=== PATIENT | male | born 1995 | race Two or more races ===

== ENCOUNTER 2023-03-05 19:53 | Inpatient (IN) | payer MEDICAID ==
[~2023-03-05] VITALS: Ht 170.2 cm; Wt 86.8 kg
[2023-03-05 20:39] LABS: ANION GAP 1 mmol/L (8-16); CALCIUM, TOTAL 8.4 mg/dL (8.8-10.5); CARBON DIOXIDE 24 mmol/L (22-29); CHLORIDE 109 mmol/L (98-107); CREATININE 0.82 mg/dL (0.60-1.30); GLOMERULAR FILTR. RATE CALC > 60 mL/min (>60); GLUCOSE,RANDOM 107 mg/dL (70-110); POTASSIUM 3.5 mmol/L (3.5-5.1); SODIUM SERUM 134 mmol/L (136-145); UREA NITROGEN, BLOOD 8 mg/dL (7-18)
[2023-03-05 20:44] LABS: ALANINE AMINOTRANSFERASE 31 U/L (12-78); ALBUMIN 3.6 g/dL (3.4-5.0); ALKALINE PHOSPHATASE 51 U/L (46-116); ASPARTATE AMINOTRANSFERASE 29 U/L (15-37); BILIRUBIN,TOTAL 0.2 mg/dL (0.1-1.0); TOTAL PROTEIN, SERUM 6.9 g/dL (6.4-8.2)
[2023-03-05 20:45] LABS: ALCOHOL, BLOOD (SERUM) 98 mg/dL (0-10)
[2023-03-05 22:33] LABS: PH,URINE DRUG SCREEN 5.5 (5.0-8.0)
[2023-03-05 22:40] LABS: ALCOHOL, URINE DRUG SCREEN POSITIVE (NEGATIVE); AMPHET/METH SCREEN,URINE NEGATIVE (NEGATIVE); BARBITURATE SCREEN, URINE NEGATIVE (NEGATIVE); BENZODIAZEPINES SCREEN,URINE NEGATIVE (NEGATIVE); CANNABINOID SCREEN,URINE POSITIVE (NEGATIVE); COCAINE SCREEN,URINE NEGATIVE (NEGATIVE); METHADONE SCREEN, URINE NEGATIVE (NEGATIVE); OPIATE SCREEN,URINE NEGATIVE (NEGATIVE); PHENCYCLIDINE SCREEN,URINE NEGATIVE (NEGATIVE)
[2023-03-05 23:25] LABS: BASOPHILS % (AUTO) 0.4 % (0.0-2.0); EOSINOPHILS % (AUTO) 1.9 % (1.0-6.0); HEMATOCRIT 41.6 % (41-53); HEMOGLOBIN 13.2 g/dL (13.5-17.5); LYMPHOCYTES # (AUTO) 1.4 K/uL (1.0-4.8); LYMPHOCYTES % (AUTO) 26.4 % (22.0-44.0); MEAN CORPUSCULAR HGB CONC 31.7 G/dL (31.0-37.0); MEAN CORPUSCULAR VOLUME 95 fL (80-100); MONOCYTES # (AUTO) 0.3 K/uL (0.1-1.0); MONOCYTES % (AUTO) 5.7 % (2.0-9.0); NEUTROPHILS # (AUTO) 3.4 K/uL (1.8-7.7); NEUTROPHILS % (AUTO) 65.6 % (40.0-70.0); PLATELET COUNT (AUTO) 369 K/uL (150-450); RED BLOOD CELL COUNT(AUTO) 4.39 MIL/uL (4.50-5.90); RED CELL DISTRIBUTION WIDTH 14.3 % (11.5-14.5); WHITE BLOOD COUNT (AUTO) 5.2 K/uL (4.5-11.0)
[2023-03-06] MEDS ORDERED: OLANZapine 5 MG TABLET PO ONE (00:45)
[2023-03-06 01:13] LABS: COVID AG,FIA SOURCE NASOPHARYNGEAL
[2023-03-06 01:38] LABS: SARS-COV2 (COVID) ANTIGEN,FIA Negative (Negative)
[2023-03-06] MEDS ORDERED: LORazepam 2 MG TABLET PO PRN (07:45)
[2023-03-06] MEDS ORDERED: HALOPERIDOL 5 MG TABLET PO PRN (07:45)
[2023-03-06 16:24] LABS: APPEARANCE,URINE HAZY (CLEAR); BILIRUBIN,URINE NEGATIVE (NEGATIVE); COLOR,URINE LIGHT YELLOW (YELLOW); GLUCOSE, URINE (UA) NEGATIVE (NEGATIVE); KETONES,URINE NEGATIVE (NEGATIVE); LEUKOCYTE ESTERASE ,URINE NEGATIVE (NEGATIVE); NITRATE,URINE NEGATIVE (NEGATIVE); OCCULT BLOOD,URINE NEGATIVE (NEGATIVE); PROTEIN,URINE NEGATIVE (NEGATIVE); SPECIFIC GRAVITIY, URINE 1.016 (1.003-1.030); UROBILINOGEN,URINE <=1.0 mg/dL (<=1.0)
[2023-03-06 16:52] LABS: ALCOHOL, URINE DRUG SCREEN NEGATIVE (NEGATIVE); AMPHET/METH SCREEN,URINE NEGATIVE (NEGATIVE); BARBITURATE SCREEN, URINE NEGATIVE (NEGATIVE); BENZODIAZEPINES SCREEN,URINE NEGATIVE (NEGATIVE); CANNABINOID SCREEN,URINE NEGATIVE (NEGATIVE); COCAINE SCREEN,URINE NEGATIVE (NEGATIVE); METHADONE SCREEN, URINE NEGATIVE (NEGATIVE); OPIATE SCREEN,URINE NEGATIVE (NEGATIVE); PHENCYCLIDINE SCREEN,URINE NEGATIVE (NEGATIVE)
[2023-03-06 22:56] VITALS: BP 104/58; PULSE 55; RESP 19; TEMP 97.2; O2SAT 99
[2023-03-07 08:56] VITALS: BP 106/52; PULSE 62; RESP 18; TEMP 97.9; O2SAT 97
[2023-03-07] MEDS: OLANZapine 5 MG TABLET PO SCH (17:13)
[2023-03-07 20:06] VITALS: BP 109/60; PULSE 71; RESP 18; TEMP 98; O2SAT 98
[2023-03-07] MEDS: ZOLPIDEM TARTRATE 10 MG TABLET PO PRN (20:40)
[2023-03-07] MEDS ORDERED: PETROLATUM,WHITE 28 GM JELLY TP PRN (20:45)
[2023-03-07] MEDS ORDERED: GuaiFENesin/D-METHORPHAN [SUGAR-FREE] 200-20MG/10 ML SYRUP UDCUP PO PRN (20:45)
[2023-03-07] MEDS ORDERED: CloNIDine HCL 0.1 MG TABLET PO PRN (20:45)
[2023-03-07] MEDS ORDERED: LOPERAMIDE HCL 2 MG CAPSULE PO PRN (20:45)
[2023-03-07] MEDS ORDERED: ACETAMINOPHEN 325 MG TABLET PO PRN (20:45)
[2023-03-07] MEDS ORDERED: MAGNESIUM HYDROXIDE SUSPENSION 30 ML UDCUP PO PRN (20:45)
[2023-03-07] MEDS ORDERED: ONDANSETRON HCL 4 MG TABLET PO PRN (20:45)
[2023-03-07] MEDS ORDERED: IBUPROFEN 400 MG TABLET PO PRN (20:45)
[2023-03-07] MEDS ORDERED: MAG HYDROX/AL HYDROX/SIMETH ES 30 ML SUSPENSION UDCUP PO PRN (20:45)
[2023-03-07] MEDS ORDERED: ALBUTEROL SULFATE HFA 90 MCG/PUFF 8 GM INHALER IH PRN (20:45)
[2023-03-07] MEDS ORDERED: NICOTINE 14 MG/24 HOUR PATCH TD PRN (20:45)
[2023-03-07] MEDS ORDERED: DOCUSATE SODIUM 100 MG CAPSULE PO PRN (20:45)
[2023-03-08 07:04] LABS: HEMOGLOBIN A1C 5.3 % (3.8-5.6)
[2023-03-08 07:08] LABS: THYROID STIMULATING HORMONE 1.18 uIU/mL (0.36-3.74)
[2023-03-08] MEDS: OLANZapine 5 MG TABLET PO SCH ×2 (09:42→17:34)
[2023-03-08 10:48] VITALS: BP 102/57; PULSE 78; RESP 18; TEMP 98; O2SAT 100
[2023-03-08] MEDS: ZOLPIDEM TARTRATE 10 MG TABLET PO PRN (20:34)
[2023-03-08 20:50] VITALS: BP 100/58; PULSE 70; RESP 18; TEMP 97.8; O2SAT 97
[2023-03-09] MEDS: OLANZapine 5 MG TABLET PO SCH ×2 (08:02→16:01)
[2023-03-09 10:34] VITALS: BP 106/51; PULSE 71; RESP 16; TEMP 97.8; O2SAT 99
[2023-03-09] MEDS: SERTRALINE HCL 50 MG TABLET PO SCH (12:56)
[2023-03-09] MEDS: ZOLPIDEM TARTRATE 10 MG TABLET PO PRN (20:39)
[2023-03-09 20:57] VITALS: BP 106/69; PULSE 81; RESP 18; TEMP 97.8; O2SAT 97
[2023-03-10] MEDS: SERTRALINE HCL 50 MG TABLET PO SCH (08:23)
[2023-03-10] MEDS: OLANZapine 5 MG TABLET PO SCH ×2 (08:23→16:19)
[2023-03-10 09:50] VITALS: BP 121/70; PULSE 75; RESP 18; TEMP 98; O2SAT 97
[2023-03-10 20:35] VITALS: BP 109/70; PULSE 79; RESP 18; TEMP 97.8; O2SAT 98
[2023-03-10] MEDS: ZOLPIDEM TARTRATE 10 MG TABLET PO PRN (20:35)
[2023-03-10 21:05] VITALS: BP 109/60; PULSE 72; RESP 18; TEMP 97.8; O2SAT 97
[2023-03-10 21:35] VITALS: RESP 18
[2023-03-11] MEDS: SERTRALINE HCL 50 MG TABLET PO SCH (08:02)
[2023-03-11] MEDS: OLANZapine 5 MG TABLET PO SCH ×2 (08:02→16:56)
[2023-03-11 12:05] VITALS: BP 122/69; PULSE 68; RESP 18; TEMP 97.6
[2023-03-11 20:41] VITALS: BP 103/64; PULSE 65; RESP 19; TEMP 97.5
[2023-03-11 20:45] VITALS: BP 103/64; PULSE 65; RESP 18; TEMP 97.5
[2023-03-11] MEDS: ZOLPIDEM TARTRATE 10 MG TABLET PO PRN (22:10)
[2023-03-12] MEDS: OLANZapine 5 MG TABLET PO SCH ×2 (08:56→17:16)
[2023-03-12] MEDS: SERTRALINE HCL 50 MG TABLET PO SCH (08:56)
[2023-03-12 10:24] VITALS: BP 116/62; PULSE 72; RESP 18; TEMP 98.1; O2SAT 99
[2023-03-12 20:07] VITALS: BP 100/64; PULSE 71; RESP 18; TEMP 97.3; O2SAT 100
[2023-03-12] MEDS: ZOLPIDEM TARTRATE 10 MG TABLET PO PRN (21:45)
[2023-03-13 08:00] VITALS: BP 132/60; PULSE 88; RESP 18; TEMP 97.6; O2SAT 99
[2023-03-13] MEDS: OLANZapine 5 MG TABLET PO SCH ×2 (09:40→17:45)
[2023-03-13] MEDS: SERTRALINE HCL 50 MG TABLET PO SCH (09:40)
[2023-03-13] MEDS: ZOLPIDEM TARTRATE 10 MG TABLET PO PRN (21:12)
[2023-03-13 22:44] VITALS: BP 105/64; PULSE 88; RESP 18; TEMP 97.5; O2SAT 97
[2023-03-14 08:00] VITALS: BP 117/71; PULSE 81; RESP 17; TEMP 97.7; O2SAT 97
[2023-03-14] MEDS: FOLIC ACID 1 MG TABLET PO SCH (08:50)
[2023-03-14] MEDS: SERTRALINE HCL 50 MG TABLET PO SCH (08:50)
[2023-03-14] MEDS: OLANZapine 5 MG TABLET PO SCH ×2 (08:50→16:43)
[2023-03-14] MEDS: MULTIVITAMINS, THERAPEUTIC TABLET PO SCH (08:50)
[2023-03-14] MEDS: THIAMINE 100 MG TABLET PO SCH (08:50)
[2023-03-14 20:55] VITALS: BP 113/68; PULSE 72; RESP 18; TEMP 98; O2SAT 97
[2023-03-14] MEDS: ZOLPIDEM TARTRATE 10 MG TABLET PO PRN (21:12)
[2023-03-15 08:00] VITALS: BP 133/75; PULSE 85; RESP 18; TEMP 96.9; O2SAT 97
[2023-03-15] MEDS: FOLIC ACID 1 MG TABLET PO SCH (08:35)
[2023-03-15] MEDS: MULTIVITAMINS, THERAPEUTIC TABLET PO SCH (08:35)
[2023-03-15] MEDS: THIAMINE 100 MG TABLET PO SCH (08:35)
[2023-03-15] MEDS: OLANZapine 5 MG TABLET PO SCH ×2 (08:35→16:44)
[2023-03-15] MEDS: SERTRALINE HCL 50 MG TABLET PO SCH (08:36)
[2023-03-15] MEDS: ZOLPIDEM TARTRATE 10 MG TABLET PO PRN (21:02)
[2023-03-15 21:23] VITALS: BP 132/61; PULSE 83; RESP 18; TEMP 97.5; O2SAT 98
[2023-03-16 08:00] VITALS: BP 108/54; PULSE 93; RESP 18; TEMP 98.4; O2SAT 100
[2023-03-16] MEDS: OLANZapine 5 MG TABLET PO SCH (09:41)
[2023-03-16] MEDS: FOLIC ACID 1 MG TABLET PO SCH (09:41)
[2023-03-16] MEDS: THIAMINE 100 MG TABLET PO SCH (09:41)
[2023-03-16] MEDS: MULTIVITAMINS, THERAPEUTIC TABLET PO SCH (09:41)
[2023-03-16] MEDS: SERTRALINE HCL 50 MG TABLET PO SCH (09:42)
[2023-03-16 13:47] LABS: COVID AG,FIA SOURCE NASAL SWAB
[2023-03-16 14:06] LABS: SARS-COV2 (COVID) ANTIGEN,FIA Negative (Negative)
[2023-03-16] MEDS ORDERED: SERT-158 PO (15:39)
[2023-03-16] MEDS ORDERED: OLAN5TAB52 PO ×2 (15:58→16:26)
[2023-03-16] MEDS ORDERED: SERT-439 PO (16:26)
== END 2023-03-16 16:08 | disposition home or self-care (01) | DRG 750 ==
LOC: EMS 19:55 → 3EI 03-06 20:24
PROVIDERS: ADMIT Psychiatry & Neurology Psychiatry; ATTEND Psychiatry & Neurology Psychiatry
DX: F25.1 Schizoaffective disorder, depressive type (principal); R45.851 Suicidal ideations; E87.1 Hypo-osmolality and hyponatremia; D64.9 Anemia, unspecified; Z20.822 Contact with and (suspected) exposure to COVID-19; F10.10 Alcohol abuse, uncomplicated; R03.0 Elevated blood-pressure reading, without diagnosis of hypertension; F12.10 Cannabis abuse, uncomplicated; F41.9 Anxiety disorder, unspecified; G47.00 Insomnia, unspecified; Z79.899 Other long term (current) drug therapy
CPT/HCPCS: 80053; 80061; 80307; 81003; 83036; 84443; 85025; 99285; G0480